=== PATIENT | female | born 1965 | race Caucasian/White ===

== ENCOUNTER 2020-03-02 11:51 | Emergency (ER) | payer OTHER, SELFPAY ==
--- NOTE | ~2020-03-02 | XR_ITS ---
EXAMINATION: XR ankle LT min 3V EXAM DATE: 03/02/2020 12:15 INDICATION: Initial encounter following injury, with pain of the left ankle. TECHNIQUE: Left ankle frontal, lateral and oblique projections obtained and reviewed. There is no pr ior study for comparison. FINDINGS: The left ankle mortise appears intact. There are no acute fractures or dislocations ident ified. There is no subcutaneous gas. The soft tissue is unremarkable. There are no radiopaque for eign bodies. IMPRESSION: 1. XR ankle LT min 3V exam without acute osseous findings. Reviewed, dictated and finalized at location B.
--- NOTE | ~2020-03-02 | XR_ITS ---
EXAMINATION: XR knee RT 3V EXAM DATE: 03/02/2020 12:15 INDICATION: Initial encounter following injury, with pain of the knees bilaterally. TECHNIQUE: Three projections of the right knee. There is no prior study for comparison. FINDINGS: No evidence osteochondral defect or joint body in the right knee joint. There are no acut e fractures or dislocations identified. There is no subcutaneous gas. The soft tissue is unremarkab le. There are no radiopaque foreign bodies. IMPRESSION: 1. XR knee RT 3V exam without acute osseous findings. Reviewed, dictated and finalized at location B.
--- NOTE | ~2020-03-02 | XR_ITS ---
EXAMINATION: XR knee LT 3V EXAM DATE: 03/02/2020 12:15 INDICATION: Initial encounter following injury, with pain of the knees. TECHNIQUE: Three projections of the left knee. There is no prior study for comparison. FINDINGS: No evidence osteochondral defect or joint body in the left knee joint. There are no acute fractures or dislocations identified. There is no subcutaneous gas. The soft tissue is unremarkabl e. There are no radiopaque foreign bodies. IMPRESSION: 1. XR knee LT 3V exam without acute osseous findings. Reviewed, dictated and finalized at location B.
[2020-03-02 11:54] VITALS: BP 117/77; PULSE 83; RESP 18; TEMP 36.5; O2SAT 99
--- NOTE | 2020-03-02 13:25 | ED.GENADULT ---
HPI - General Adult General Chief complaint: Extremity Injury, Lower <Trev Gentile PA-C - Last Filed: 03/02/20 13:30> Stated complaint: L ankle injury <Trev Gentile PA-C - Last Filed: 03/02/20 13:30> Time Seen by Provider: 03/02/20 12:18 <Trev Gentile PA-C - Last Filed: 03/02/20 13:30> Source: patient <Trev Gentile PA-C - Last Filed: 03/02/20 13:30> Mode of arrival: ambulatory <Trev Gentile PA-C - Last Filed: 03/02/20 13:30> Limitations: no limitations <Trev Gentile PA-C - Last Filed: 03/02/20 13:30> History of Present Illness HPI narrative: Patient is a 54-year-old female who presents with injuries related to falling down her stairs patient was wearing flip-flops slipped injuring the bilateral knees and left ankle where she has aching pain worse with activity and movement patient denies head injury back injury or other complaints presents in no distress <Trev Gentile PA-C - Last Filed: 03/02/20 13:30> PMFSH Past Medical History Medical History: Medical History Depression <Trev Gentile PA-C - Last Filed: 03/02/20 13:30> Surgical History Surgical History: Surgical History H/O breast augmentation <Trev Gentile PA-C - Last Filed: 03/02/20 13:30> Social History Social History: Social History Gender identity (if verbalized by the patient): Male <Trev Gentile PA-C - Last Filed: 03/02/20 13:30> Exam Narrative: Exam Narrative: GENERAL: Well-appearing, well-nourished, and in no acute distress. HEAD: Normocephalic, atraumatic. EYES: PERRLA and EOMI. ENT: Nares clear, no rhinorrhea or epistaxis. Mucous membranes moist. CHEST: Clear to auscultation. No respiratory distress. No wheezes rales or rhonchi HEART: Regular rate and rhythm. No murmur heard. Normal peripheral pulses. ABDOMEN: Soft, nontender, nondistended EXTREMITIES: Normal range of motion. No edema. Abrasions to the bilateral knees. Tenderness and swelling of the lateral left ankle SKIN: Warm, dry, no rash. NEURO: No focal deficits. Alert and oriented x3. Neurovascularly intact PSYCH: Normal mood and affect. <Trev Gentile PA-C - Last Filed: 03/02/20 13:30> Course Course Emergency Course: Patient aware of case findings treatment plan and diagnosis <Trev Gentile PA-C - Last Filed: 03/02/20 13:30> Vital Signs Vital signs: Vital Signs Temperature 97.7 F 03/02/20 11:54 Pulse Rate 83 03/02/20 11:54 Respiratory Rate 18 03/02/20 11:54 Blood Pressure 117/77 03/02/20 11:54 Pulse Oximetry 99 03/02/20 11:54 Temperature 98.6 F 03/02/20 13:39 Pulse Rate 75 03/02/20 13:39 Respiratory Rate 16 03/02/20 13:39 Blood Pressure 135/87 03/02/20 13:39 Pulse Oximetry 99 03/02/20 13:39 <Trev Gentile PA-C - Last Filed: 03/02/20 13:30> Vital Signs Temperature 97.7 F 03/02/20 11:54 Pulse Rate 83 03/02/20 11:54 Respiratory Rate 18 03/02/20 11:54 Blood Pressure 117/77 03/02/20 11:54 Pulse Oximetry 99 03/02/20 11:54 Temperature 98.6 F 03/02/20 13:39 Pulse Rate 75 03/02/20 13:39 Respiratory Rate 16 03/02/20 13:39 Blood Pressure 135/87 03/02/20 13:39 Pulse Oximetry 99 03/02/20 13:39 <Rochelle Strong MD - Last Filed: 03/02/20 14:49> Medical Decision Making MDM Narrative Medical decision making narrative: Patients injury or pain is consistent with musculoskeletal etiology. No signs of neurological or vascular compromise on exam. Compartments and tisues are soft without signs of compartment syndrome. Pain is felt appropriate for further evaluation on an outpatient basis. <Trev Gentile PA-C - Last Filed: 03/02/20 13:30> Vital Signs Vital Signs: Vital Signs Temperature 97.7 F
[2020-03-02 13:39] VITALS: BP 135/87; PULSE 75; RESP 16; TEMP 37; O2SAT 99
== END 2020-03-02 13:41 | disposition home or self-care (01) ==
PROVIDERS: Emergency Provider Emergency Medicine; PCP Physician Assistant
DX: S93.402A Sprain of unspecified ligament of left ankle, initial encounter (principal); S80.211A Abrasion, right knee, initial encounter; S80.212A Abrasion, left knee, initial encounter; W10.9XXA Fall (on) (from) unspecified stairs and steps, initial encounter
CPT/HCPCS: 73562; 73610; 99284